=== PATIENT | female | born 1975 | race Caucasian/White ===

== ENCOUNTER 2018-04-16 03:44 | Emergency (ER) | payer OTHER ==
[2018-04-16] MEDS ORDERED: NS 1,000 ML IV ONE ×2 (03:54→04:47)
[2018-04-16] MEDS ORDERED: KETOROLAC 15 MG/1 ML SDV IVP ONE (03:54)
[2018-04-16] MEDS ORDERED: ONDANSETRON 4 MG/2 ML VIAL IVP ONE (03:54)
--- NOTE | 2018-04-16 03:57 | EDPHY ---
H & P Stated Complaint: upper abd pain with diarrhea and vomiting Time Seen by Provider: 04/16/18 03:51 HPI/ROS: Chief Complaint: Diarrhea, vomiting, abdominal pain HPI: 43-year-old woman began having upper abdominal bloating and cramping at about 7:00 a.m. Yesterday evening. About an hour later started having diarrhea. Over the course of the last few hours she has had multiple episodes of vomiting and diarrhea. No blood or dark tarry stools. No blood in her emesis. Has been having some persistent upper abdominal cramping. Has a history of a hysterectomy in the past. No fevers or chills. No urinary urgency or frequency. There are no aggravating or alleviating factors. ROS: 10 systems were reviewed and were negative except those elements noted in the HPI. PMH: Hysterectomy, breast augmentation Social History: No smoking, no alcohol, no recreational drug use Family History: non-contributory Physical Exam: Gen: Awake, Alert, No Distress HEENT: Nose: no rhinorrhea Eyes: PERRLA, EOMI Mouth: Moist mucosa Neck: Supple, no JVD Chest: nontender, lungs clear to auscultation Heart: S1, S2 normal, no murmur Abd: Soft, moderate left upper quadrant abdominal tenderness, no guarding Back: no CVA tenderness, no midline tenderness Ext: no edema, non-tender Skin: no rash Neuro: CN II-XII intact, Sensation grossly intact, Strength 5/5 in bilateral upper and lower extremities - Personal History LMP (Females 10-55): Hysterectomy Current Tetanus/Diphtheria Vaccine: Yes Current Tetanus Diphtheria and Acellular Pertussis (TDAP): Yes - Medical/Surgical History Hx Asthma: No Hx Chronic Respiratory Disease: No Hx Diabetes: No Hx Cardiac Disease: No Hx Renal Disease: No Hx Cirrhosis: No Hx Alcoholism: No Hx HIV/AIDS: No Hx Splenectomy or Spleen Trauma: No Other PMH: hysterectomy, , breast surgery - Social History Smoking Status: Current some day smoker Constitutional: Initial Vital Signs Temperature (C) 36.4 C 04/16/18 03:44 Heart Rate 93 04/16/18 03:44 Respiratory Rate 16 04/16/18 03:44 Blood Pressure 127/77 H 04/16/18 03:44 O2 Sat (%) 94 04/16/18 03:44 O2 Delivery Mode Room Air Allergies/Adverse Reactions: No Known Allergies Allergy (Unverified 04/16/18 03:49) Home Medications: Medication Instructions Recorded NK [No Known Home Meds] 04/16/18 Medical Decision Making ED Course/Re-evaluation: Laboratory evaluations noted. Patient has some mild persistent left upper quadrant tenderness. Abdomen is otherwise soft and benign. Has a leukocytosis which is consistent with her vomiting and diarrhea. She has no right upper quadrant tenderness. No right lower quadrant tenderness. No left lower quadrant tenderness. Lipase and LFTs are unremarkable. She has a small elevation of her bilirubin. Patient is feeling better after IV fluids antiemetics and analgesia. No evidence of acute surgical process. Will discharge with follow-up with primary care physician. - Data Points Laboratory Results: Laboratory Results 04/16/18 04:20 04/16/18 04:20 04/16/18 04/16/18 04:20 04:20 WBC 16.15 10^3/uL H 10^3/uL (3.80-9.50) RBC 4.88 10^6/uL 10^6/uL (4.18-5.33) Hgb 15.6 g/dL g/dL (12.6-16.3) Hct 44.3 % % (38.0-47.0) MCV 90.8 fL fL (81.5-99.8) MCH 32.0 pg pg (27.9-34.1) MCHC 35.2 g/dL g/dL (32.4-36.7) RDW 11.9 % % (11.5-15.2) Plt Count 266 10^3/uL 10^3/uL (150-400) MPV 9.7 fL fL (8.7-11.7) Neut % (Auto) 92.6 % H % (39.3-74.2) Lymph % (Auto) 2.5 % L % (15.0-45.0) [place] % (Auto) 4.1 % L % (4.5-13.0) Eos % (Auto) 0.2 % L % (0.6-7.6) Baso % (Auto) 0.3 % % (0.3-1.7) Nucleat RBC Rel Count 0.0 % % (0.0-0.2) Absolute Neuts (auto) 14.95 10^3/uL H 10^3/uL (1.70-6.50) Absolute Lymphs (auto) 0.40 10^3/uL L 10^3/uL (1.00-3.00) Absolute Monos (auto) 0.66 10^3/uL 10^3/uL (0.30-0.80) Absolute Eos (auto) 0.03 10^3/uL 10^3/uL (0.03-0.40) Absolute Basos (auto) 0.05 10^3/uL 10^3/uL (0.02-0.10) Absolute Nucleated RBC 0.00 10^3/uL 10^3/uL (0-0.01) Immature Gran % 0.3 % % (0.0-1.1) Immature Gran # 0.05 10^3/uL 10^3/uL (0.00-0.10) RBC/WBC/PLT Morphology TNP Platelet Estimate TNP Sodium 137 mEq/L mEq/L (135-145) Potassium 4.5 mEq/L mEq/L (3.5-5.2) Chloride 104 mEq/L mEq/L (97-110) Carbon Dioxide 19 mEq/l L mEq/l (22-31) Anion Gap 14 mEq/L mEq/L (6-14) BUN 23 mg/dL mg/dL (7-23) Creatinine 0.8 mg/dL mg/dL (0.6-1.0) Estimated GFR > 60 Glucose 119 mg/dL H mg/dL (70-100) Calcium 9.8 mg/dL mg/dL (8.5-10.4) Total Bilirubin 1.5 mg/dL H mg/dL (0.1-1.4) AST 26 IU/L IU/L (14-46) ALT 32 IU/L IU/L (9-52) Alkaline Phosphatase 63 IU/L IU/L (38-126) Total Protein 8.2 g/dL g/dL (6.3-8.2) Albumin 5.1 g/dL H g/dL (3.5-5.0) Lipase 50 IU/L IU/L (23-300) Medications Given: Discontinued Medications Fentanyl (Sublimaze) 50 mcg IVP EDNOW ONE Stop: 04/16/18 05:28 Last Admin: 04/16/18 05:36 Dose: 50 mcg Sodium Chloride (Ns) 1,000 mls @ 0 mls/hr IV ONCE ONE; Wide Open PRN Reason: Protocol Stop: 04/16/18 03:55 Last Admin: 04/16/18 04:18 Dose: 1,000 mls Sodium Chloride (Ns) 1,000 mls @ 0 mls/hr IV ONCE ONE; Wide Open PRN Reason: Protocol Stop: 04/16/18 04:48 Last Admin: 04/16/18 05:03 Dose: 1,000 mls Famotidine 20 mg/ Sodium (Chloride) 102 mls @ 408 mls/hr IV EDNOW ONE Stop: 04/16/18 05:01 Last Admin: 04/16/18 05:02 Dose: 102 mls Ketorolac Tromethamine (Toradol) 15 mg IVP EDNOW ONE Stop: 04/16/18 03:55 Last Admin: 04/16/18 04:18 Dose: 15 mg Ondansetron HCl (Zofran) 4 mg IVP EDNOW ONE Stop: 04/16/18 03:55 Last Admin: 04/16/18 04:18 Dose: 4 mg Departure - Departure Disposition: Home, Routine, Self-Care Clinical Impression: Acute gastroenteritis Condition: Fair Instructions: Gastroenteritis (ED), Acute Nausea and Vomiting (ED) Additional Instructions: You may take Zofran as needed for nausea vomiting. Recommend a bland diet, avoid dairy, caffeine, fatty foods, spicy foods, and alcohol. Follow up with primary care physician in in 3-4 days if symptoms are not improving. Return to the emergency department for worsening abdominal pain, uncontrolled nausea vomiting, fevers or chills, or any other concerns. Referrals: NONE *PRIMARY CARE P,. [Primary Care Provider] - As per Instructions
[2018-04-16 04:28] LABS: PLATELET COUNT 266 10^3/uL (150-400)
[2018-04-16] MEDS ORDERED: FAMOTIDINE 20 MG in NS 100 ML IV ONE (04:47)
[2018-04-16] MEDS ORDERED: fentaNYL 100 MCG/2 ML INJ IVP ONE (05:27)
[2018-04-16 05:47] VITALS: BP 99/54
[2018-04-16] MEDS ORDERED: ONDANSETRON 4MG PREPACK#2 BTL TAKEHOME ONE (06:23)
== END 2018-04-16 06:36 | disposition home or self-care (01) ==
DX: K52.9 Noninfective gastroenteritis and colitis, unspecified (principal); E86.9 Volume depletion, unspecified
CPT/HCPCS: 96365; J1885; J2405; J3010

== ENCOUNTER 2018-04-17 10:49 | Emergency (ER) | payer OTHER ==
--- NOTE | 2018-04-17 11:10 | EDPHY ---
H & P Stated Complaint: Facial swelling/head/neck pain Time Seen by Provider: 04/17/18 11:06 HPI/ROS: CHIEF COMPLAINT: "I woke up with a swollen face" HISTORY OF PRESENT ILLNESS: 43-year-old female generally healthy, seen in the ER yesterday for nausea vomiting diarrhea, woke this morning with facial swelling and continued feeling fatigue. Denies dysphagia or odynophagia. Denies abdominal pain. Denies rash. Denies itching. Denies peripheral edema. Denies dizziness. Denies headache. Denies nuchal rigidity. Denies headache. Denies change in voice. REVIEW OF SYSTEMS: 10 systems reviewed and negative with the exception of the elements mentioned in the history of present illness PAST MEDICAL & SURGICAL HISTORY: Hysterectomy. Breast augmentation SOCIAL HISTORY: Nonsmoker no illicit drug use PHYSICAL EXAM (Prior to examination, patient consented to physical exam, hands were washed and my usual and customary physical exam procedures followed) 1) GENERAL: Well-developed, well-nourished, alert and oriented. Appears to be in no acute distress. 2) HEAD: Normocephalic, atraumatic 3) HEENT: Pupils equal, round, reactive to light bilaterally. Sclera anicteric. Known ejection. Bilateral periorbital edema noted. Upper and lower lip edema noted. No uvula edema. No tongue edema. Nasopharynx, oropharynx, clear, no lesions. No tonsillar enlargement or exudate. Uvula midline. No trismus or drooling. No hot potato voice. Moist mucous membranes. Ears bilaterally with normal tympanic membranes. 4) NECK: Full range of motion, no meningeal signs. Positive bilateral submandibular adenopathy. 5) LUNGS: Clear auscultation bilaterally, no wheezes, no rhonchi, no retractions. 6) HEART: Regular rate and rhythm, no murmur, no heave, no gallop. 7) ABDOMEN: No guarding, no rebound, no focal tenderness, negative McBurney's, negative Bond's, negative Rovsing's, negative peritoneal sign, 8) MUSCULOSKELETAL: Moving all extremities, no focal areas of tenderness, no obvious trauma. No peripheral edema or discoloration. 9) BACK: No CVA tenderness, no midline vertebral tenderness, no fluctuance, no step-off, no obvious trauma, no visual or palpable abnormality. 10) SKIN: No rash, no petechiae. No urticaria. No erythema. 11) Psychiatric: Patient is oriented X 3, there is no agitation. DIFFERENTIAL DIAGNOSIS: In no particular order including but not limited to angioedema, urticaria, anaphylaxis - Personal History LMP (Females 10-55): Hysterectomy Current Tetanus/Diphtheria Vaccine: Yes - Medical/Surgical History Hx Asthma: No Hx Chronic Respiratory Disease: No Hx Diabetes: No Hx Cardiac Disease: No Hx Renal Disease: No Hx Cirrhosis: No Hx Alcoholism: No Hx HIV/AIDS: No Hx Splenectomy or Spleen Trauma: No Other PMH: hysterectomy, , breast surgery - Social History Smoking Status: Former smoker Constitutional: Initial Vital Signs Temperature (C) 36.6 C 04/17/18 10:58 Heart Rate 84 04/17/18 10:58 Respiratory Rate 16 04/17/18 10:58 Blood Pressure 105/73 04/17/18 10:58 O2 Sat (%) 98 04/17/18 10:58 O2 Delivery Mode Room Air Allergies/Adverse Reactions: No Known Allergies Allergy (Unverified 04/17/18 11:01) Home Medications: Medication Instructions Recorded predniSONE [Prednisone] 60 mg PO DAILY 3 Days tablet 04/17/18 Medical Decision Making ED Course/Re-evaluation: 1:07 p.m.: Re-evaluation after H1 H2 blockers, Decadron. She is sleeping, easily woken. Angioedema has decreased significantly. 237 pm: Re-evaluation after 2 L IV fluid, blood pressure 99/69, feeling well, no lightheadedness, mentating clearly, observed ambulating the bathroom with no complaints of dizziness or near syncope. She has no urticaria, no tonsillar glossal enlargement. She appears significantly improved regarding her overall edema. Plan will be discharge home. Given my usual customary angioedema precautions instructions. Care of patient under supervision of secondary supervising physician Dr Peña with whom I discussed case. - Data Points Laboratory Results: Laboratory Results 04/17/18 11:45 04/17/18 11:45 04/17/18 04/17/18 04/17/18 11:45 11:45 11:45 WBC 3.85 10^3/uL 10^3/uL (3.80-9.50) RBC 4.25 10^6/uL 10^6/uL (4.18-5.33) Hgb 13.4 g/dL g/dL (12.6-16.3) Hct 40.3 % % (38.0-47.0) MCV 94.8 fL fL (81.5-99.8) MCH 31.5 pg pg (27.9-34.1) MCHC 33.3 g/dL g/dL (32.4-36.7) RDW 12.0 % % (11.5-15.2) Plt Count 229 10^3/uL 10^3/uL (150-400) MPV 9.8 fL fL (8.7-11.7) Neut % (Auto) 56.2 % % (39.3-74.2) Lymph % (Auto) 28.1 % % (15.0-45.0) [place] % (Auto) 9.9 % % (4.5-13.0) Eos % (Auto) 4.7 % % (0.6-7.6) Baso % (Auto) 0.8 % % (0.3-1.7) Nucleat RBC Rel Count 0.0 % % (0.0-0.2) Absolute Neuts (auto) 2.17 10^3/uL 10^3/uL (1.70-6.50) Absolute Lymphs (auto) 1.08 10^3/uL 10^3/uL (1.00-3.00) Absolute Monos (auto) 0.38 10^3/uL 10^3/uL (0.30-0.80) Absolute Eos (auto) 0.18 10^3/uL 10^3/uL (0.03-0.40) Absolute Basos (auto) 0.03 10^3/uL 10^3/uL (0.02-0.10) Absolute Nucleated RBC 0.00 10^3/uL 10^3/uL (0-0.01) Immature Gran % 0.3 % % (0.0-1.1) Immature Gran # 0.01 10^3/uL 10^3/uL (0.00-0.10) Sodium 138 mEq/L mEq/L (135-145) Potassium 4.0 mEq/L mEq/L (3.5-5.2) Chloride 108 mEq/L mEq/L (97-110) Carbon Dioxide 24 mEq/l mEq/l (22-31) Anion Gap 6 mEq/L mEq/L (6-14) BUN 9 mg/dL mg/dL (7-23) Creatinine 0.7 mg/dL mg/dL (0.6-1.0) Estimated GFR > 60 Glucose 87 mg/dL mg/dL (70-100) Calcium 8.2 mg/dL L mg/dL (8.5-10.4) Monoscreen NEGATIVE (NEGATIVE) Medications Given: Discontinued Medications Dexamethasone (Decadron Injection) 10 mg IVP EDNOW ONE Stop: 04/17/18 11:39 Last Admin: 04/17/18 12:00 Dose: 10 mg Diphenhydramine HCl (Benadryl Injection) 50 mg IVP EDNOW ONE Stop: 04/17/18 11:39 Last Admin: 04/17/18 11:56 Dose: 50 mg Sodium Chloride (Ns) 2,000 mls @ 0 mls/hr IV ONCE ONE PRN Reason: Wide Open Stop: 04/17/18 13:28 Last Admin: 04/17/18 13:30 Dose: 2,000 mls Ranitidine HCl (Zantac) 50 mg IVP EDNOW ONE Stop: 04/17/18 11:39 Last Admin: 04/17/18 11:55 Dose: 50 mg Departure - Departure Disposition: Home, Routine, Self-Care Clinical Impression: Angio-edema Qualifiers: Encounter type: initial encounter Qualified Code(s): T78.3XXA - Angioneurotic edema, initial encounter Condition: Good Instructions: Prednisone (By mouth), Angioedema (ED) Additional Instructions: Return to the ER if you develop return of facial swelling, if you develop any other body swelling, if you develop swelling of your tongue, few have difficulty swallowing or difficulty breathing, if you have rash or itching, or any other symptoms that concern you. Referrals: Kary Persaud MD [[facility] [place] Primary Care Provider] - 1-2 days without fail Prescriptions: predniSONE [Prednisone] 60 mg PO DAILY 3 Days tablet
[2018-04-17] MEDS ORDERED: DEXAMETHASONE 10 MG/ML VIAL IVP ONE (11:38)
[2018-04-17] MEDS ORDERED: RANITIDINE 50 MG/2 ML VIAL IVP ONE (11:38)
[2018-04-17 11:59] LABS: PLATELET COUNT 229 10^3/uL (150-400)
[2018-04-17] MEDS ORDERED: NS 2,000 ML IV ONE (13:27)
[2018-04-17 14:36] VITALS: BP 99/69
== END 2018-04-17 14:51 | disposition home or self-care (01) ==
DX: T78.3XXA Angioneurotic edema, initial encounter (principal); Z87.891 Personal history of nicotine dependence
CPT/HCPCS: 96374; J1100; J1200; J2780